=== PATIENT | female | born 1965 | race Native Hawaiian/Other Pacific Islander ===

== ENCOUNTER 2017-05-31 20:16 | Emergency (ER) | payer OTHER ==
[~2017-05-31] VITALS: Ht 180.3 cm; Wt 81.6 kg
[2017-05-31 20:29] VITALS: BP 137/85; TEMP 98
== END 2017-05-31 21:51 | disposition home or self-care (01) ==
LOC: ED 20:16
DX: R21 Rash and other nonspecific skin eruption (principal)
CPT/HCPCS: 99281